=== PATIENT | female | born 1935 | race Caucasian/White ===

== ENCOUNTER 2017-06-18 10:33 | Inpatient (IN) | payer MEDICARE, BC ==
[~2017-06-18] VITALS: Ht 152.4 cm; Wt 34.9 kg
[2017-06-18] MEDS ORDERED: SODIUM CHLORIDE 0.9% 1,000 ML IV ONE (11:00)
[2017-06-18 11:31] LABS: HEMATOCRIT. 45.8 % (36.0-48.0); HEMOGLOBIN. 15.3 g/dL (12.0-16.0); MEAN CORPUSCULAR HEMOGLOBIN 29.7 pg (28.0-32.0); MEAN PLATELET VOLUME 8.6 fl (7.4-10.4); PLATELET 264 x1000/uL (130-400); RED BLOOD CELL COUNT 5.14 mill/uL (4.2-5.4); RED CELL DISTRIBUTION WIDTH 14.7 % (11.6-14.6)
[2017-06-18 11:32] LABS: CLARITY URINE CLOUDY (CLEAR); COLOR URINE YELLOW (YELLOW); GLUCOSE URINE NEGATIVE (NEGATIVE); KETONES URINE 1+ (NEGATIVE); LEUKOCYTE ESTERASE URINE NEGATIVE (NEGATIVE); NITRITE URINE NEGATIVE (NEGATIVE); OCCULT BLOOD URINE NEGATIVE (NEGATIVE); PROTEIN URINE TRACE (NEGATIVE); SPECIFIC GRAVITY URINE 1.016 (1.005-1.030); UROBILINOGEN URINE 0.2 E.U./dL (0.2-1.0)
[2017-06-18 11:40] LABS: INR 1.1; PROTHROMBIN TIME 10.9 sec (9.4-11.6)
[2017-06-18 11:50] LABS: PLATELET ESTIMATE NORMAL
[2017-06-18 11:52] LABS: CARBON DIOXIDE 27 mEq/L (21-32); CHLORIDE 100 mEq/L (98-107); TROPONIN I 0.02 ng/mL (0.00-0.04)
[2017-06-18 12:00] VITALS: BP 144/76
[2017-06-18] MEDS ORDERED: ASPIRIN 325MG TABLET PO ONE (12:30)
[2017-06-18 16:00] VITALS: BP 128/53
[2017-06-18 17:54] VITALS: BP 145/70
[2017-06-18] MEDS ORDERED: AMLO10TA80 PO (19:51)
[2017-06-18] MEDS ORDERED: LORA0.5T2 PO (19:51)
[2017-06-18] MEDS ORDERED: METO-396 PO (19:51)
[2017-06-18] MEDS ORDERED: LEVO50TA PO (19:51)
[2017-06-18] MEDS ORDERED: CITA10TA9 PO (19:51)
[2017-06-18] MEDS ORDERED: LACT10SO6 MT (19:51)
[2017-06-18 20:00] VITALS: BP 126/69
[2017-06-18 23:40] VITALS: BP 134/45
[2017-06-19 04:00] VITALS: BP_SYST 138; BP_SYST 145; BP_SYST 148; BP_DIAS 54; BP_DIAS 86; BP_DIAS 98
[2017-06-19] MEDS ORDERED: DEXTROSE 50% WATER 50ML SYRINGE IV PRN (04:00)
[2017-06-19] MEDS ORDERED: LACTULOSE 20G/30ML UDC PO PRN (04:00)
[2017-06-19] MEDS: LEVOTHYROXINE SODIUM 112MCG TABLET PO SCH ×2 (07:40→08:41)
[2017-06-19] MEDS ORDERED: BLOOD SUGAR DIAGNOSTIC STRIP TEST SCH (07:40)
[2017-06-19] MEDS ORDERED: INSULIN LISPRO 100 UNITS/ML SUBCUT SCH (08:10)
[2017-06-19 08:11] VITALS: BP_SYST 163; BP_SYST 166; BP_DIAS 73; BP_DIAS 74
[2017-06-19] MEDS: AMLODIPINE 5MG TABLET PO SCH ×3 (08:41→21:49)
[2017-06-19] MEDS: CITALOPRAM HYDROBROMIDE 10MG TABLET PO SCH ×2 (08:41→08:55)
[2017-06-19 09:47] LABS: BASOPHILS % 0.2 % (0.0-2.0); EOSINOPHILS % 0.3 % (0.0-5.0); HEMATOCRIT. 43.5 % (36.0-48.0); HEMOGLOBIN. 14.7 g/dL (12.0-16.0); MEAN CORPUSCULAR HEMOGLOBIN 30.2 pg (28.0-32.0); MEAN CORPUSCULAR VOLUME 89.3 fL (81.0-99.0); MEAN PLATELET VOLUME 8.9 fl (7.4-10.4); MONOCYTES % 5.8 % (2.0-8.0); NEUTROPHILS % 82.7 % (40.0-76.0); PLATELET 232 x1000/uL (130-400); RED BLOOD CELL COUNT 4.87 mill/uL (4.2-5.4); RED CELL DISTRIBUTION WIDTH 14.3 % (11.6-14.6)
[2017-06-19] MEDS: HYDRALAZINE 20MG/ML VIAL IV PRN ×2 (09:56→17:47)
[2017-06-19] MEDS: LORAZEPAM 2MG/ML CPJ IV PRN (09:56)
[2017-06-19 10:14] LABS: T4 FREE 1.77 ng/dL (0.76-1.46)
[2017-06-19 16:00] VITALS: BP 155/59
[2017-06-19 20:00] VITALS: BP_SYST 128; BP_SYST 134; BP_DIAS 34; BP_DIAS 54
[2017-06-19] MEDS: DEXT 5%/0.45% NACL 1000ML 1,000 ML IV SCH (21:44)
[2017-06-20] VITALS: BP 124/58
[2017-06-20 04:00] VITALS: BP 113/42
[2017-06-20 06:39] LABS: BASOPHILS % 0.4 % (0.0-2.0); EOSINOPHILS % 1.4 % (0.0-5.0); HEMOGLOBIN. 12.7 g/dL (12.0-16.0); LYMPHOCYTES % 12.6 % (20.0-50.0); MEAN CORPUSCULAR VOLUME 89.8 fL (81.0-99.0); MONOCYTES % 9.6 % (2.0-8.0); PLATELET 210 x1000/uL (130-400); RED BLOOD CELL COUNT 4.24 mill/uL (4.2-5.4); RED CELL DISTRIBUTION WIDTH 14.6 % (11.6-14.6)
[2017-06-20 08:00] VITALS: BP 123/44
[2017-06-20 08:20] LABS: CARBON DIOXIDE 26 mEq/L (21-32); CHLORIDE 102 mEq/L (98-107); TROPONIN I < 0.02 ng/mL (0.00-0.04)
[2017-06-20] MEDS: AMLODIPINE 5MG TABLET PO SCH ×2 (09:20→21:00)
[2017-06-20] MEDS: CITALOPRAM HYDROBROMIDE 10MG TABLET PO SCH (09:20)
[2017-06-20] MEDS ORDERED: POTASSIUM CHLORIDE 20MEQ TABLET SR PO NR ×2 (11:15→13:15)
[2017-06-20 12:00] VITALS: BP 149/54
[2017-06-20] MEDS: DEXT 5%/0.45% NACL 1000ML 1,000 ML IV SCH (14:25)
[2017-06-20 16:00] VITALS: BP 121/74
[2017-06-20] MEDS ORDERED: POTASSIUM CHLORIDE INJ 40 MEQ in DEXT 5% WATER 250 ML IV NR (16:00)
[2017-06-20 20:00] VITALS: BP 111/60
[2017-06-21] VITALS: BP 114/78
[2017-06-21 04:00] VITALS: BP 130/68
[2017-06-21 08:00] VITALS: BP 149/59
[2017-06-21] MEDS: CITALOPRAM HYDROBROMIDE 10MG TABLET PO SCH (08:35)
[2017-06-21] MEDS: AMLODIPINE 5MG TABLET PO SCH (08:35)
[2017-06-21] MEDS: DEXT 5%/0.45% NACL 1000ML 1,000 ML IV SCH (08:37)
[2017-06-21 10:18] LABS: HEMATOCRIT. 43.8 % (36.0-48.0); HEMOGLOBIN. 14.5 g/dL (12.0-16.0); MEAN CORPUSCULAR HEMOGLOBIN 29.9 pg (28.0-32.0); MEAN CORPUSCULAR VOLUME 89.9 fL (81.0-99.0); PLATELET 207 x1000/uL (130-400); RED BLOOD CELL COUNT 4.87 mill/uL (4.2-5.4); RED CELL DISTRIBUTION WIDTH 14.9 % (11.6-14.6)
[2017-06-21] MEDS: LORAZEPAM 2MG/ML CPJ IV PRN (10:19)
[2017-06-21 11:33] LABS: CARBON DIOXIDE 23 mEq/L (21-32); CHLORIDE 105 mEq/L (98-107)
[2017-06-21 12:00] VITALS: BP 135/69
[2017-06-21 16:00] VITALS: BP 145/61
[2017-06-21 16:10] VITALS: BP 127/57
[2017-06-21 17:23] LABS: PLATELET ESTIMATE NORMAL
== END 2017-06-21 18:31 | disposition home or self-care (01) | DRG 91 ==
LOC: ER 11:01 → 7WST 12:30 → EDBEDREQ 12:32 → ENRESERV 12:58 → 7WST 06-21 06:13
PROVIDERS: ADMIT Internal Medicine; ATTEND Internal Medicine
DX: G92 Toxic encephalopathy (principal); R65.11 Systemic inflammatory response syndrome (SIRS) of non-infectious origin with acute organ dysfunction; E46 Unspecified protein-calorie malnutrition; N39.0 Urinary tract infection, site not specified; Z68.1 Body mass index [BMI] 19.9 or less, adult; G90.8 Other disorders of autonomic nervous system; F03.90 Unspecified dementia, unspecified severity, without behavioral disturbance, psychotic disturbance, mood disturbance, and anxiety; I11.9 Hypertensive heart disease without heart failure; R00.1 Bradycardia, unspecified; E03.9 Hypothyroidism, unspecified; E87.6 Hypokalemia; F32.9 Major depressive disorder, single episode, unspecified; Z91.19 Patient's noncompliance with other medical treatment and regimen
CPT/HCPCS: 36415; 70450; 70551; 71010; 80048; 80053; 81001; 82962; 83036; 83735; 84439; 84443; 84484; 85025; 85610; 93005; 93306; 93880; 96360; 96361; 97163; 97166; 97530; 99285; C1893; J0360; J2060; J3480; J3490; J7030; J7060